=== PATIENT | female | born 1940 | race Caucasian/White ===

== ENCOUNTER → 2017-04-05 | Outpatient (CLI) | payer OTHER ==
[~2017-04-05] MED LIST: ADVAIR HFA115 MCG/21; ALTACE10 MG PO; CINNAMON500 MG PO; FISH OIL 1,001000 M2 PO; LEVOTHYROXIN0.112 M1 PO; LIPITOR10 MG PO; VENTOLIN HFA 1818 GM
--- NOTE | ~2017-04-05 | EKG ---
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
== END ==
LOC: LITH 06:53
DX: N20.0 Calculus of kidney (principal); I50.9 Heart failure, unspecified; E78.00 Pure hypercholesterolemia, unspecified; J44.9 Chronic obstructive pulmonary disease, unspecified; M10.9 Gout, unspecified; Z98.890 Other specified postprocedural states